=== PATIENT | female | born 1945 | race Caucasian/White ===

== ENCOUNTER 2021-12-04 15:26 | Outpatient (CLI) | payer MEDICARE, SELFPAY ==
--- NOTE | 2021-12-04 | CYSPIN_PTH ---
PATIENT: SHY LOPEZ LOC: [facility] U#:[id number] AGE/SX: 76/F ROOM: RE12/04/[address]: Dr. Lilia Saleh MD : [id number] BED: DIS: 12/04/2021 SPEC #: [id number] RECD: 12/05/21 09:47 STATUS: MYNOR WARD #: [id number] MAGGIE: 12/04/21 00:[address]: Lilia Saleh DEPT: CYTOLOGY RECD BY: Willow Gonzalez Tissues: Urine Procedures: Pap Stain (control) Special Stain Group II Cytospin Fluid HEADER OPERATION: Not noted PRE-OP DIAGNOSIS: Gross hematuria TISSUE SUBMITTED: Urine for cytology DIAGNOSIS CYTOLOGY Urine for cytology (cytospin): Atypical urothelial cells present. See comment. AM:alexsander 12/05/2021 COMMENT Abundant bacterial colonies are present in the smear with focal acute inflammation. Clinical correlation is necessary. CYTOLOGY STUDY Slides are reviewed. CYTOLOGY GROSS Received is 8 ml of clear yellow fluid labeled with the patient's name and and designated per the requisition as urine. Submitted for cytology preparation. / alexsander 12/04/2021 TC:? CPT: 37343
[2021-12-04 15:45] LABS: Cytology, Body Fluid / CSF SEE PATHOLOGY REPORT
== END 2021-12-04 23:59 | disposition short-term general hospital (02) ==
PROVIDERS: Visit Provider Urology
DX: R31.0 Gross hematuria (principal)
CPT/HCPCS: 88108; 88313

== ENCOUNTER 2021-12-12 14:18 | Outpatient (CLI) | payer MEDICARE, SELFPAY ==
--- NOTE | 2021-12-12 14:23 | CT_ITS ---
STUDY: CT Abdomen And Pelvis WO/W Contrast Injection 12/12/2021 3:34 PM REASON FOR EXAM: Female, 76 years old. Abdominal pain GROSS HEMATURIA Individualized dose optimization techniques were used for this CT. COMPARISON: None. TECHNIQUE: CT Abdomen And Pelvis WO/W Contrast Injection IV 100mL [id number]-300 FINDINGS: There are atherosclerotic calcifications of visualized coronary arteries. The visualized portions of the heart are within normal limits. Normal liver. There are surgical clips in the gallbladder fossa consistent with a prior cholecystectomy. Normal spleen. Normal pancreas. There is a small, circumscribed, smooth, low attenuation left adrenal mass, consistent with an adrenal adenoma. Normal right adrenal gland. This measures 18 mm. No acute findings of the right kidney. No acute findings of the left kidney. There is a large hiatal hernia composed mostly of the fundus of the stomach. Normal small intestine. There are multiple colonic diverticula consistent with diverticulosis. The appendix is visualized and appears normal. There are calcifications of the abdominal aorta. This is consistent for atherosclerotic disease. There is no abdominal aortic aneurysm. Normal inferior vena cava. Subcentimeter mesenteric lymph nodes. Normal urinary bladder. There is atrophy of the uterus. There is an umbilical hernia containing fat. There are diffuse degenerative changes of the visualized lumbar spine. Degenerative findings of the hips. There is bilateral neural foraminal stenosis at L4-5 and L5-S1. Old appearing superior endplate compression deformity of L2. This may relate to a Schmorl''s node. There is scoliosis of the lumbar spine. IMPRESSION: (NOT LISTED IN ORDER OF SIGNIFICANCE) There is a large hiatal hernia composed mostly of the fundus of the stomach. Benign left adrenal adenoma. No follow-up required. There are multiple colonic diverticula consistent with diverticulosis. Other findings as above. Electronically Signed: Bobby Sandoval MD at 15:38 EST , CT/CT Abd/Pelvis W/WO Contrast
[2021-12-12 14:36] LABS: CREATININE FINGERSTICK 1.2 mg/dL (0.55-1.02)
== END 2021-12-12 23:59 | disposition home or self-care (01) ==
LOC: CT 14:20
PROVIDERS: PCP Family Medicine; Referring Provider Urology; Visit Provider Urology
DX: R31.0 Gross hematuria (principal)
CPT/HCPCS: 74178; Q9967

== ENCOUNTER 2022-06-12 09:42 | Day surgery (SDC) | payer MEDICARE, SELFPAY ==
[2022-06-12] VITALS (7 sets, daily range): BP systolic 125–158; BP diastolic 62–74; PULSE 65–79; RESP 16; TEMP 36.1–36.6; O2SAT 95–100; BMI 32.5
--- NOTE | 2022-06-12 10:09 | DCINST_ITS ---
Discharge Instructions Diet Discharge Diet: No restrictions Activity Discharge Activity: Return to Normal Activity Dressing / Incision Call your doctor if you observe: Fever of 101 or Higher, Inability to urinate and Inability to have a bowel movement Follow Up Care Please Follow Up With: Lilia Saleh MD When: call office for appt to be seen in 2 weeks Test Results: Test results from this visit will be discussed in further detail at your follow- up appointment, if applicable. Discharge Plan Admission Attending Provider: Lilia Saleh Primary Care Provider: Maty Rogers Discharge Orders/Prescriptions Prescriptions: New phenazopyridine [phenazopyridine] 100 mg tablet 100 mg PO TID Qty: 30 0RF cephalexin [cephalexin] 500 mg capsule 500 mg PO Q12 3 Days Qty: 6 0RF Continued polyethylene glycol 3350 [Miralax] 17 gram Powder In Packet 17 g PO DAILY PRN (Reason: Constipation) dorzolamide-timolol 22.3-6.8 mg/mL drops 1 drp RIGHT EYE BID Label Comments: 1 drop Right Eye twice a day hydrochlorothiazide 25 mg tablet 25 mg PO DAILY ibuprofen 600 mg Tablet 600 mg PO DAILY estradiol 0.01 % (0.1 mg/gram) cream 1 applic VAGINAL QODAY lisinopril 40 mg tablet 40 mg PO DAILY dexlansoprazole [Dexilant] 30 mg Capsule,Biphase Delayed Releas 30 mg PO DAILY cholecalciferol (vitamin D3) [Vitamin D3] 25 mcg (1,000 unit) Tablet,Chewable 25 mcg PO DAILY Prolia 60 mg/mL Syringe 60 mg SUBCUT QMONTH Lumigan 0.01 % drops 1 drp RIGHT EYE QHS calcium carbonate-vitamin D3 [Calcium 600 with Vitamin D3] 600 mg-12.5 mcg (500 unit) Capsule 1 cap PO DAILY Probiotic 100 billion cell Capsule 1 cap PO QWEEK simvastatin 20 mg tablet 20 mg PO QHS aspirin 81 mg Capsule 81 mg PO QHS Referrals / Follow Up: Maty Rogers DO [Primary Care Provider] - Disposition Disposition (needs filled in before D/C Order can be placed): Home, Self Care
[2022-06-12] MEDS: Lactated Ringers 1,000 ML 15 ML IV (10:13)
--- NOTE | 2022-06-12 11:26 | PCM.OPRPT ---
Report of Operation Date of Procedure: 06/12/22 Pre-Operative Diagnosis: Urethral stenosis, bacteriuria, gross hematuria Post-Operative Diagnosis: Same Surgery/Procedure Performed:: Urethral dilation, cystourethroscopy Surgeon: Lilia Saleh Type of Anesthesia: MAC Description of Procedure: The patient presents for a urethral dilation and cystoscopic evaluation for hematuria, bacteriuria. Informed consent has been obtained. The patient was taken to the operating room and placed on the operating room table. Anesthesia monitored the head, neck, airway, IV access and vital signs throughout the case. Once anesthesia was appropriate ministered, the patient was placed into dorsal lithotomy position and was prepped and draped in usual sterile fashion. The urethra was subsequently dilated from [address] to 26 [place] without difficulty. The cystoscope easily passed into the urinary bladder and the mucosa was visualized in its entirety. There were no masses, lesions, areas of erythema, ulceration or foreign body. At this time the patient's bladder was emptied and the case was terminated. The patient was awakened and taken to the recovery room in good condition. There were no complications during this procedure. Grafts/Implants Used: None Complications None Admit VTE Documentation VTE Present on Admission: Yes VTE Mechan Device Prophylaxis: SCD's VTE Pharm Prophylaxis ordered?: No Reason prophylaxis not ordered:: Treatment Not Indicated
[2022-06-12] MEDS: Cefazolin 2 GM in 0.9% Normal Saline 100 ML IV (11:49)
== END 2022-06-12 13:30 | disposition home or self-care (01) ==
LOC: SDC 09:44 → AC 09:48
PROVIDERS: PCP Family Medicine; Visit Provider Urology
PROC: 0T7D8ZZ Dilation of Urethra, Via Natural or Artificial Opening Endoscopic (ICD-10-PCS; CPT 52281; principal; 2022-06-12 11:25)
DX: N35.92 Unspecified urethral stricture, female (principal); N95.2 Postmenopausal atrophic vaginitis; N39.41 Urge incontinence; N32.81 Overactive bladder; R31.0 Gross hematuria; R82.71 Bacteriuria
CPT/HCPCS: 53661; 00910; J7120